=== PATIENT | female | born 1995 | race Caucasian/White ===

== ENCOUNTER 2016-10-02 22:08 | Emergency (ER) | payer SELFPAY ==
[2016-10-03 00:43] LABS: microscopic required? YES; urine erythrocyte TRACE (NEGATIVE)
[2016-10-03 01:20] VITALS: BP 132/84
== END 2016-10-03 01:20 | disposition home or self-care (01) ==
LOC: ED 22:08
PROVIDERS: Emergency Medicine
DX: M54.5 Low back pain (principal)
CPT/HCPCS: 82962